=== PATIENT | male | born 1965 | race Two or more races ===

== ENCOUNTER 2016-09-14 12:10 | Emergency (ER) | payer MEDICAID ==
[~2016-09-14] VITALS: Ht 180.3 cm; Wt 112.0 kg
[2016-09-14] MEDS ORDERED: SODIUM CHLORIDE 0.9% 1,000 ML IV ONE (12:33)
[2016-09-14] MEDS ORDERED: cloNIDine HCL 0.1 MG TAB PO ONE (12:45)
[2016-09-14 13:15] LABS: Basophils # (auto) 0 uL; Basophils % (auto) 0.5 % (0.0-2.0); Eosinophils # (auto) 0.2 uL; Eosinophils % (auto) 2.1 % (0.0-7.0); Hematocrit 47.9 % (41.0-53.0); Hemoglobin 16.2 g/dL (13.5-17.5); Lymphocytes # (auto) 1.4 uL; Lymphocytes % (auto) 15.2 % (10.0-50.0); Mean Corpuscular Hgb Conc. 33.7 g/dL (32.0-36.0); Mean Corpuscular Volume 85.8 fL (80.0-100.0); Mean Platelet Volume 9.8 fL (7.4-10.4); Monocytes # (auto) 0.5 uL; Monocytes % (auto) 5.5 % (0.0-12.0); Neutrophils # (auto) 6.9 uL; Neutrophils % (auto) 76.7 % (37.0-80.0); Platelet Count (auto) 288 10^3/uL (140-450); Red Cell Distribution Width 13.5 % (11.6-16.0)
[2016-09-14 13:39] LABS: Albumin 4.2 g/dL (3.4-5.0); Alkaline Phosphatase 121 U/L (45-117); Anion Gap 8 (5-15); Aspartate Aminotransferase 42 U/L (15-37); BUN/Creatinine Ratio 17.1; Bilirubin, Total 0.5 mg/dL (0.2-1.0); Blood Urea Nitrogen 18 mg/dL (7-18); Calcium 9.3 mg/dL (8.5-10.1); Carbon Dioxide 29 mmol/L (21-32); Chloride 106 mmol/L (98-107); GFR African American 96 mL/min; GFR Non-African American 79 mL/min; Glucose 107 mg/dL (74-106); Magnesium 2.6 mg/dL (1.6-2.6); Sodium 143 mmol/L (136-145); Total Protein 8.3 g/dL (6.4-8.2)
[2016-09-14 14:07] VITALS: BP 137/92
== END 2016-09-14 14:48 | disposition home or self-care (01) ==
LOC: ER 12:16
DX: I10 Essential (primary) hypertension (principal); E66.9 Obesity, unspecified; K12.2 Cellulitis and abscess of mouth; G47.30 Sleep apnea, unspecified; Z68.35 Body mass index [BMI] 35.0-35.9, adult
CPT/HCPCS: 36415; 71020; 80053; 83735; 84443; 84484; 85025; 93005; 94761; 96360; 96361; 99285; J7030

== ENCOUNTER → 2021-09-20 | Outpatient (CLI) | payer SELFPAY | END | disposition home or self-care (01) | LOC: Rad HDHVI 09:38 | PROVIDERS: ATTEND Internal Medicine | DX: I07.1 Rheumatic tricuspid insufficiency (principal); I10 Essential (primary) hypertension | CPT/HCPCS: 93306 ==